=== PATIENT | female | born 1960 | race Caucasian/White ===

== ENCOUNTER 2018-11-10 19:05 | Emergency (ER) | payer OTHER ==
[~2018-11-10] VITALS: Ht 167.6 cm; Wt 76.2 kg
[2018-11-10] MEDS ORDERED: SYNTHROID175 MCG PO (19:15)
[2018-11-10] MEDS ORDERED: MAXITROL EYE DRO5 ML OPHTHALMIC (19:45)
[2018-11-10] MEDS ORDERED: MEDROL DOSPAK21 TA1 PO (19:45)
[2018-11-10 20:07] VITALS: BP 129/87
== END 2018-11-10 20:09 | disposition home or self-care (01) ==
LOC: M.ERS 19:05
DX: L23.9 Allergic contact dermatitis, unspecified cause (principal); H10.9 Unspecified conjunctivitis